=== PATIENT | female | born 1930 | race Caucasian/White ===

== ENCOUNTER 2016-08-08 13:59 | Day surgery (SDCO) | payer MEDICARE, OTHER ==
[2016-08-08 15:35] LABS: BASOPHIL 0.2 % (0-2); EOSINOPHIL 1.4 % (0-7); HCT 39.9 % (37.0-47.0); HGB 13.6 g/dl (12.5-16.0); LYMPHOCYTE 14.9 % (15-48); MCH 32.3 pg (25.0-31.0); MCHC 34.1 g/dL (32.0-36.0); MCV 94.8 fL (78.0-100.0); MONOCYTE 5.6 % (0-12); MPV 10.1 fL (6.0-9.5); NEUTROPHIL 77.9 % (41-80); PLT 188 K/uL (150-400); RBC 4.21 M/uL (4.20-5.40); RDW 13.4 % (11.5-14.0); WBC 11.1 K/uL (4.0-10.5)
[2016-08-08 15:52] LABS: ALBUMIN 4.5 g/dL (3.4-4.8); BILIRUBIN - TOTAL 0.4 mg/dL (0.1-1.0); CREATININE 0.9 mg/dL (0.5-1.0); GLOBULIN (CALCULATION) 2.6 g/dL (2.2-4.2); POTASSIUM 4.5 mmol/L (3.5-5.1); TOTAL PROTEIN 7.1 g/dL (6.4-8.3)
[2016-08-08 15:56] LABS: LACTIC ACID 1.9 mmol/L (0.5-2.2)
[2016-08-09 03:07] LABS: HCT 35.9 % (37.0-47.0); HGB 12.2 g/dl (12.5-16.0); MCV 94.2 fL (78.0-100.0); MPV 9.9 fL (6.0-9.5); RBC 3.81 M/uL (4.20-5.40); RDW 13.3 % (11.5-14.0); WBC 8.8 K/uL (4.0-10.5)
[2016-08-09 03:26] LABS: INR 1.16 (0.9-1.2); PROTHROMBIN TIME 14.4 SECONDS (11.7-14.0)
[2016-08-09 03:34] LABS: CREATININE 0.8 mg/dL (0.5-1.0); MAGNESIUM 1.77 mg/dL (1.40-2.10); PHOSPHORUS 3.6 mg/dL (2.7-4.5); POTASSIUM 4.5 mmol/L (3.5-5.1)
[2016-08-09 03:37] LABS: TROPONIN T 0.331 ng/mL
== END 2016-08-09 14:10 | disposition other institution (70) ==
LOC: FER 13:59 → FMS 17:45 → FTCU 17:45
PROVIDERS: Hospitalist; Internal Medicine; ADMIT Internal Medicine
DX: I21.4 Non-ST elevation (NSTEMI) myocardial infarction (principal); J44.9 Chronic obstructive pulmonary disease, unspecified; I10 Essential (primary) hypertension; I71.4 Abdominal aortic aneurysm, without rupture; Z85.038 Personal history of other malignant neoplasm of large intestine; Z82.49 Family history of ischemic heart disease and other diseases of the circulatory system; Z90.49 Acquired absence of other specified parts of digestive tract; Z90.710 Acquired absence of both cervix and uterus; Z88.1 Allergy status to other antibiotic agents; Z88.5 Allergy status to narcotic agent; Z79.1 Long term (current) use of non-steroidal anti-inflammatories (NSAID); Z79.82 Long term (current) use of aspirin; Z79.899 Other long term (current) drug therapy; Z98.890 Other specified postprocedural states
CPT/HCPCS: 36415; 36600; 71010; 71275; 80048; 80053; 82550; 82803; 83605; 83735; 83880; 84100; 84484; 85025; 85379; 85610; 87040; 93005; 94640; G0378; J2930; Q9967

== ENCOUNTER 2016-08-15 13:50 | Emergency (ER) | payer MEDICARE, OTHER ==
[2016-08-15 14:30] LABS: BASOPHIL 0.7 % (0-2); EOSINOPHIL 2.8 % (0-7); HCT 35.1 % (37.0-47.0); LYMPHOCYTE 19.1 % (15-48); MCH 32.2 pg (25.0-31.0); MCHC 34.2 g/dL (32.0-36.0); MCV 94.1 fL (78.0-100.0); MONOCYTE 13.5 % (0-12); MPV 9.9 fL (6.0-9.5); NEUTROPHIL 63.9 % (41-80); PLT 226 K/uL (150-400); RBC 3.73 M/uL (4.20-5.40); RDW 12.9 % (11.5-14.0)
[2016-08-15 14:32] LABS: WBC 10.9 K/uL (4.0-10.5)
[2016-08-15 14:35] LABS: INR 1.07 (0.9-1.2); PROTHROMBIN TIME 13.5 SECONDS (11.7-14.0); PTT 26.6 SECONDS (23.2-31.4)
[2016-08-15 14:44] LABS: ALBUMIN 3.8 g/dL (3.4-4.8); BILIRUBIN - TOTAL 0.7 mg/dL (0.1-1.0); CREATININE 1.2 mg/dL (0.5-1.0); MAGNESIUM 1.87 mg/dL (1.40-2.10); POTASSIUM 4.6 mmol/L (3.5-5.1); TOTAL PROTEIN 6.8 g/dL (6.4-8.3)
[2016-08-15 14:51] LABS: TROPONIN T 0.027 ng/mL
== END 2016-08-15 17:19 | disposition home or self-care (01) ==
LOC: FER 13:50
PROVIDERS: Internal Medicine
DX: J04.0 Acute laryngitis (principal); E86.0 Dehydration; M79.81 Nontraumatic hematoma of soft tissue; I25.2 Old myocardial infarction; J44.9 Chronic obstructive pulmonary disease, unspecified; Z85.038 Personal history of other malignant neoplasm of large intestine; Z88.1 Allergy status to other antibiotic agents; Z88.2 Allergy status to sulfonamides; Z88.5 Allergy status to narcotic agent; Z79.82 Long term (current) use of aspirin; Z79.02 Long term (current) use of antithrombotics/antiplatelets; Z79.899 Other long term (current) drug therapy
CPT/HCPCS: 36415; 71010; 80053; 82550; 82553; 83735; 83874; 83880; 84484; 85025; 85610; 85730; 93005; 93978; 94640

== ENCOUNTER 2016-08-19 12:30 | Emergency (ER) | payer MEDICARE, OTHER ==
[2016-08-19 13:44] LABS: BASOPHIL 0.2 % (0-2); EOSINOPHIL 0.1 % (0-7); HCT 36.4 % (37.0-47.0); HGB 12.6 g/dl (12.5-16.0); LYMPHOCYTE 19.9 % (15-48); MCH 32.5 pg (25.0-31.0); MCHC 34.6 g/dL (32.0-36.0); MCV 93.8 fL (78.0-100.0); MONOCYTE 6.4 % (0-12); MPV 9.8 fL (6.0-9.5); NEUTROPHIL 73.4 % (41-80); PLT 311 K/uL (150-400); RBC 3.88 M/uL (4.20-5.40); RDW 12.9 % (11.5-14.0); WBC 16.2 K/uL (4.0-10.5)
[2016-08-19 13:45] LABS: BILIRUBIN NEGATIVE (NEGATIVE); BLOOD 2+ Ery/uL (NEGATIVE); COLOR YELLOW (YELLOW); GLUCOSE (U) NORMAL (NORMAL); KETONE (U) NEGATIVE (NEGATIVE); LEUKOCYTES 1+ Leu/uL (NEGATIVE); NITRITE NEGATIVE (NEGATIVE); PROTEIN NEGATIVE (NEGATIVE); SPECIFIC GRAVITY 1.015 (1.001-1.030); UROBILINOGEN 0.2 mg/dL (0.2-1.0)
[2016-08-19 13:46] LABS: CLARITY SLIGHTLY HAZY (CLEAR)
[2016-08-19 13:49] LABS: BACTERIA 1+
[2016-08-19 14:00] LABS: CREATININE 0.8 mg/dL (0.5-1.0); POTASSIUM 4.5 mmol/L (3.5-5.1)
[2016-08-19 16:12] LABS: LACTIC ACID 1.1 mmol/L (0.5-2.2)
== END 2016-08-19 16:45 | disposition home or self-care (01) ==
LOC: FER 12:30
PROVIDERS: Nurse Practitioner Family
DX: N30.00 Acute cystitis without hematuria (principal); R53.1 Weakness; I10 Essential (primary) hypertension; E78.5 Hyperlipidemia, unspecified; J44.9 Chronic obstructive pulmonary disease, unspecified; F41.9 Anxiety disorder, unspecified; Z85.038 Personal history of other malignant neoplasm of large intestine; Z88.1 Allergy status to other antibiotic agents; Z88.5 Allergy status to narcotic agent; Z88.2 Allergy status to sulfonamides
CPT/HCPCS: 36415; 74000; 80048; 81001; 83605; 85025

== ENCOUNTER 2016-08-21 14:38 | Day surgery (SDCO) | payer MEDICARE, OTHER ==
[~2016-08-21] VITALS: Ht 157.5 cm; Wt 48.2 kg
[2016-08-21 16:40] LABS: BASOPHIL 0.2 % (0-2); EOSINOPHIL 1.8 % (0-7); HCT 37.3 % (37.0-47.0); HGB 13.4 g/dl (12.5-16.0); LYMPHOCYTE 17.8 % (15-48); MCH 32.7 pg (25.0-31.0); MCHC 35.9 g/dL (32.0-36.0); MONOCYTE 5.1 % (0-12); MPV 9.5 fL (6.0-9.5); NEUTROPHIL 75.1 % (41-80); PLT 294 K/uL (150-400); RDW 12.9 % (11.5-14.0); WBC 14.7 K/uL (4.0-10.5)
[2016-08-21 16:52] LABS: INR 1.07 (0.9-1.2); PROTHROMBIN TIME 13.5 SECONDS (11.7-14.0); PTT 25.8 SECONDS (23.2-31.4)
[2016-08-21 17:03] LABS: ALBUMIN 3.8 g/dL (3.4-4.8); BILIRUBIN - TOTAL 0.7 mg/dL (0.1-1.0); CREATININE 0.8 mg/dL (0.5-1.0); GLOBULIN (CALCULATION) 3.1 g/dL (2.2-4.2); POTASSIUM 4.2 mmol/L (3.5-5.1); TOTAL PROTEIN 6.9 g/dL (6.4-8.3)
[2016-08-21 17:04] LABS: CKMB 1.35 ng/mL (0.97-4.94); MYOGLOBIN 37 ng/mL (26-65); PRO-BNP 98 pg/mL (0-450); TROPONIN T < 0.010 ng/mL
[2016-08-21 18:37] LABS: BILIRUBIN NEGATIVE (NEGATIVE); BLOOD NEGATIVE Ery/uL (NEGATIVE); CLARITY CLEAR (CLEAR); COLOR YELLOW (YELLOW); GLUCOSE (U) NORMAL (NORMAL); KETONE (U) NEGATIVE (NEGATIVE); LEUKOCYTES NEGATIVE Leu/uL (NEGATIVE); NITRITE NEGATIVE (NEGATIVE); PROTEIN NEGATIVE (NEGATIVE); UROBILINOGEN 0.2 mg/dL (0.2-1.0)
[2016-08-22 06:00] LABS: HCT 32.4 % (37.0-47.0); HGB 11.3 g/dl (12.5-16.0); MCH 32.2 pg (25.0-31.0); MCHC 34.9 g/dL (32.0-36.0); MCV 92.3 fL (78.0-100.0); MPV 9.4 fL (6.0-9.5); RBC 3.51 M/uL (4.20-5.40); RDW 12.9 % (11.5-14.0); WBC 13.2 K/uL (4.0-10.5)
[2016-08-22 06:28] LABS: CREATININE 0.6 mg/dL (0.5-1.0); POTASSIUM 4.8 mmol/L (3.5-5.1)
[2016-08-22] MEDS ORDERED: PRAVACHOL80 MG PO (11:16)
[2016-08-22] MEDS ORDERED: ATIVAN1 MG PO (11:16)
[2016-08-22] MEDS ORDERED: OMEPRAZOLE40 MG PO (11:17)
[2016-08-22] MEDS ORDERED: ZESTRIL5 MG PO (11:17)
[2016-08-22] MEDS ORDERED: PLAVIX75 MG PO (11:17)
[2016-08-22] MEDS ORDERED: CALCIUM 600 +1 EAC8 PO (11:17)
[2016-08-22] MEDS ORDERED: LOPRESSOR25 MG PO (11:18)
[2016-08-22] MEDS ORDERED: ASPIRIN CHEWABL81 MG PO (11:18)
[2016-08-22] MEDS ORDERED: MIRALAX17 GM PO (11:19)
[2016-08-22] MEDS ORDERED: KEFLEX500 MG PO (11:19)
== END 2016-08-22 12:18 | disposition home or self-care (01) ==
LOC: FER 14:38 → FMS 22:15
PROVIDERS: Emergency Medicine; Nurse Practitioner; ADMIT Internal Medicine Nephrology
DX: R10.30 Lower abdominal pain, unspecified (principal); K59.00 Constipation, unspecified; I25.2 Old myocardial infarction; I10 Essential (primary) hypertension; J44.9 Chronic obstructive pulmonary disease, unspecified; R33.9 Retention of urine, unspecified; R53.1 Weakness; I71.4 Abdominal aortic aneurysm, without rupture; E78.5 Hyperlipidemia, unspecified; Z87.440 Personal history of urinary (tract) infections; Z85.038 Personal history of other malignant neoplasm of large intestine; R63.4 Abnormal weight loss; Z68.1 Body mass index [BMI] 19.9 or less, adult; Z82.49 Family history of ischemic heart disease and other diseases of the circulatory system; M85.80 Other specified disorders of bone density and structure, unspecified site; M51.34 Other intervertebral disc degeneration, thoracic region; Z79.01 Long term (current) use of anticoagulants; Z79.82 Long term (current) use of aspirin; Z79.899 Other long term (current) drug therapy; Z90.49 Acquired absence of other specified parts of digestive tract; Z88.1 Allergy status to other antibiotic agents; Z90.710 Acquired absence of both cervix and uterus; Z88.2 Allergy status to sulfonamides; Z88.5 Allergy status to narcotic agent
CPT/HCPCS: 36415; 71020; 80048; 80053; 81003; 82550; 82553; 83690; 83874; 83880; 84484; 85025; 85610; 85730; 93005; 97116; 97162; 97530-GP; G0378; J2270; J2405